=== PATIENT | male | born 1995 | race African-American/Black ===

== ENCOUNTER 2018-11-20 21:16 | Emergency (ER) | payer SELFPAY ==
[~2018-11-20] VITALS: Ht 188 cm; Wt 154.2 kg
[2018-11-20] MEDS: LIDOCAINE 2%/EPI 1:100,000 20 ML VIAL. IJ ONE (23:00)
[2018-11-20] MEDS: KETOROLAC 30 MG/ML VIAL. IM ONE (23:05)
[2018-11-20] MEDS: NEOMY/BACITR/POLYMYXIN OINT PACKET. TP ONE (23:06)
[2018-11-20] MEDS: LORazepam 0.5 MG TABLET PO ONE (23:06)
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
[2018-11-21 00:05] VITALS: BP 189/100
--- NOTE | 2018-11-21 05:21 | RAD ---
Three-view left hand radiographs 11/20/2018 CLINICAL HISTORY: Laceration to left hand. PA, lateral and oblique digital radiographs of the left hand were obtained. No fracture or dislocation is seen. No radiopaque foreign body is noted. IMPRESSION: No fracture or radiopaque foreign body is seen involving the left hand. Electronically signed by: Jayy Jenkins MD (11/21/2018 5:18 AM) [id number]
== END 2018-11-21 00:06 | disposition home or self-care (01) ==
LOC: ER 21:16
DX: S61.211A Laceration without foreign body of left index finger without damage to nail, initial encounter (principal); I10 Essential (primary) hypertension; F17.200 Nicotine dependence, unspecified, uncomplicated; W26.8XXA Contact with other sharp object(s), not elsewhere classified, initial encounter; Y93.89 Activity, other specified; Y92.512 Supermarket, store or market as the place of occurrence of the external cause; Y99.8 Other external cause status
CPT/HCPCS: 12002; 73130; 96372; 99284; J1885; J3490